=== PATIENT | female | born 1975 | race Two or more races ===

== ENCOUNTER 2017-11-21 12:57 | Emergency (ER) | payer OTHER ==
[~2017-11-21] VITALS: Ht 5.1 cm; Wt 68.0 kg
[~2017-11-21 12:57] MED LIST: ASPI-1 PO; BENZ200C38 PO; BUPXL150 PO; DIP25 PO; HYDR-4309 PO; IBUP-1618 PO; LEVO250T37 PO; LORA-1455 PO; LORA-941 PO; NOR10 PO; ONDA4TAB PO; PER PO; PROM-110 PO; PROM50TA23 PO; PSEU1TAB PO; RIZA10 PO; SUMA50TA34 PO; [UNRECOGNIZED DRUG - OTHER] PO
--- NOTE | 2017-11-21 13:11 | ER Report ---
History and Physical Time Seen By MD: 12:59 HPI/ROS CC: Migraine HPI: 42-year-old female with past medical history of migraines. Patient presents to the emergency department per POV. She has a typical pattern sharp stabbing lasting pain bilateral temples radiating behind the eyes. 9 out of 10 pain. Constant. She is exhibiting nausea vomiting and photophobia with sensitivity to sounds and smells. Movement makes it worse . When the room she has her sweatshirt over her head. There are no other alleviating factors. ROS: 12 point review of systems essentially negative other than what's mentioned in history of present illness. NURSES AND OLD MEDICAL RECORDS: Reviewed PMH: Reviewed SURGICAL HX: Reviewed FAMILY HX: Noncontributory SOCIAL HX: She denies smoking alcohol or illicit drugs. VITAL SIGNS: Reviewed CONSTITUTIONAL: 42 year-old female in moderate to severe distress PHYSICAL EXAM: HEENT: Pupils equal round reactive to light and accommodate, EOMI, tympanic membranes pearly white umbo present with good light reflex. Lips dry mucous membranes moist gums nonbleeding uvula midline and rises equally with phonation, oropharynx noninjected, teeth intact. NECK: Neck supple, thyroid not appreciated, anterior and posterior cervical lymphadenopathy not appreciated. Trachea midline and rises equally with phonation. CARDIAC: S1-S2 regular rate rhythm no murmurs rubs or gallops. LUNGS: Lungs clear bilaterally posteriorly in all barron. Good air movement. ABDOMEN: Abdomen soft, nondistended, bowel sounds active in all 4 quadrants, no bruits noted, no CVA tenderness. MUSCULOSKELETAL: Strength 5 out of 5 x 4 extremities, no deformities noted. NEUROLOGIC: Patient alert and oriented by 3. Cranial 2 through 12 intact. [place] Coma Scale 15. Allergies: Coded Allergies: latex (Verified Allergy, Intermediate, RASH, 10/26/15) Home Meds Discontinued Scripts Nortriptyline Hcl (NORTRIPTYLINE HCL) 10 Mg Cap, 10 MG PO HS, #30 CAP 0 Refills Prov:JANA GALLARDO MD 10/26/15 Lorazepam (ATIVAN) 0.5 Mg Tablet, 0.5 MG PO Q4-6H Y for ANXIETY, #20 TAB 0 Refills Prov:JANA GALLARDO MD 10/26/15 Hx Smoking: No Smoking Status: Never Smoker Exposure to Second Hand Smoke?: No Hx Substance Use Disorder: No Hx Alcohol Use: No Constitutional Vital Sign - Last 24 Hours 11/21/17 11/21/17 11/21/17 11/21/17 13:01 13:01 13:12 13:27 Temp 98.2 Pulse 94 95 ??? Resp 16 B/P (MAP) 150/109 150/109 (123) Pulse Ox 97 94 O2 Delivery Room Air 11/21/17 11/21/17 11/21/17 11/21/17 13:42 13:57 14:12 14:18 Pulse 103 81 87 B/P (MAP) 130/91 (104) Pulse Ox 97 96 11/21/17 11/21/17 14:27 14:42 Pulse 82 80 Pulse Ox 97 Medical Decision Making ED Course/Re-evaluation ED Course Patient received a liter of normal saline with IV medications consisting of Reglan, Benadryl, Zofran, Decadron and patient refusing Toradol. Patient with little relief. Patient was instructed to return to her PCP Dr. Vo, presently out of town. Patient will be given [place] 5/325 10 pills. Patient has been referred to [place] [facility] in [place]. She is to call for an appointment. I discussed with him in length that she needs further evaluation by a neurologist. She has had a CT the past without any significant findings. Patient aware plan and in agreement. Re-evaluation MDM migraine, drug seeking. Decision to Disposition Date: Nov 21, 2017 Decision to Disposition Time: 15:06 Depart Departure Latest Vital Signs Vital Signs Date Time Temp Pulse Resp B/P (MAP) Pulse Ox O2 Delivery O2 Flow Rate FiO2 11/21/17 14:42 80 97 11/21/17 14:18 130/91 (104) 11/21/17 13:01 98.2 16 Room Air Impression: Primary Impression: Migraine Condition: Improved Disposition: HOME OR SELF-CARE New Scripts Hydrocodone Bit/Acetaminophen (NORCO 5-325 TABLET) 1 Each Tablet 1 EACH PO Q6H Y for PAIN, #10 TAB Prov: RADNALL GRIFFITHS MD 11/21/17 Patient Instructions: Migraine Headache (ED) Additional Instructions: [place] [facility] [address] [facility] [phone] Call for appointment. Told in the emergency room at [place] multiple times and you would like a neurology consult with evaluation. Problem Qualifiers Primary Impression: Migraine Migraine type: unspecified Status migrainosus presence: with status migrainosus Intractability: intractable Qualified Codes: G43.911 - Migraine , unspecified, intractable, with status migrainosus RANDALL GRIFFITHS MD Nov 21, 2017 13:11
[2017-11-21] MEDS ORDERED: NS(*) 0.9% 1000 ML BAG 1,000 ML IV ONE (13:14)
[2017-11-21] MEDS ORDERED: METOCLOPRAMIDE 10 MG/2 ML SDV IVP ONE (13:15)
[2017-11-21] MEDS ORDERED: DEXAMETHASONE SOD PHOS 10MG/ML IVP ONE (13:15)
[2017-11-21] MEDS ORDERED: KETOROLAC 30 MG/ML VIAL IVP ONE (13:15)
[2017-11-21] MEDS ORDERED: ONDANSETRON 4 MG/2 ML VIAL IVP ONE (13:15)
[2017-11-21] MEDS ORDERED: diphenhydrAMINE 50 MG/ML VIAL IVP ONE (13:15)
[2017-11-21] MEDS ORDERED: HYDR-4309 PO (15:04)
[2017-11-21 15:11] VITALS: BP 120/82
== END 2017-11-21 15:21 | disposition home or self-care (01) ==
LOC: ER 13:02
DX: G43.911 Migraine, unspecified, intractable, with status migrainosus (principal)
CPT/HCPCS: 96361; 96374; 96375; 99284; J1100; J1200; J2405; J2765; J7030

== ENCOUNTER 2018-06-24 12:13 | Emergency (ER) | payer MEDICAID, OTHER ==
--- NOTE | 2018-06-24 12:31 | ER Report ---
History and Physical Time Seen By MD: 12:30 HPI/ROS CHIEF COMPLAINT: Headache HISTORY OF PRESENT ILLNESS: This is a 42-year-old female presents to the emergency department for a migraine type headache. Patient states that a typical migraine headache began last night patient states that she's been under increased stress with school and this could be douglas to the headache. Patient states this is a typical course with global type headache blurriness to the right eye. This is not the most painful headache she's had. Patient also states that she's been trying to reduce the number of headaches by meditating and uvula she did see a headache specialist and they told her she would be on chronic oral medications for her headaches, the patient states she did not want to do this. Patient arrives tearful. Photophobic. Nausea no vomiting. No chest pain or shortness of breath no other complaints. REVIEW OF SYSTEMS: Constitutional: No fever, no chills. Eyes: No discharge. ENT: No sore throat. Cardiovascular: No chest pain, no palpitations. Respiratory: No cough, no shortness of breath. Gastrointestinal: As above. Genitourinary: No hematuria. Musculoskeletal: No back pain. Skin: No rashes. Neurological: As above. Allergies: Coded Allergies: latex (Verified Allergy, Intermediate, RASH, 10/26/15) Home Meds Active Scripts Hydrocodone Bit/Acetaminophen (NORCO 5-325 TABLET) 1 Each Tablet, 1 EACH PO Q6H Y for PAIN, #10 TAB Prov:RANDALL GRIFFITHS MD 11/21/17 Past Medical/Surgical History The patient has a past medical and surgical history of migraines. Reviewed Nurses Notes: Yes Hx Smoking: No Smoking Status: Never Smoker Exposure to Second Hand Smoke?: No Hx Substance Use Disorder: No Hx Alcohol Use: No Constitutional Vital Sign - Last 24 Hours 06/24/18 06/24/18 06/24/18 06/24/18 12:32 12:32 12:45 13:00 Temp 97.6 Pulse 110 98 92 Resp 18 36 24 B/P (MAP) 163/95 163/95 (117) Pulse Ox 97 97 96 O2 Delivery Room Air 06/24/18 06/24/18 06/24/18 06/24/18 13:15 13:30 13:45 13:50 Pulse 93 97 96 99 Resp 34 18 16 12 Pulse Ox 94 93 97 96 06/24/18 06/24/18 06/24/18 06/24/18 13:55 14:00 14:05 14:10 Pulse 99 97 100 99 Resp 31 20 19 24 Pulse Ox 96 96 96 95 06/24/18 06/24/18 06/24/18 06/24/18 14:15 14:20 14:25 14:27 Pulse 101 98 87 Resp 21 11 15 Pulse Ox 96 99 100 O2 Flow Rate 2.0 06/24/18 06/24/18 06/24/18 06/24/18 14:30 14:35 14:40 14:45 Pulse 84 86 84 85 Resp 23 8 Pulse Ox 100 100 100 99 06/24/18 06/24/18 06/24/18 06/24/18 14:50 14:55 15:00 15:05 Pulse 86 89 88 89 Resp 20 19 15 Pulse Ox 99 99 99 100 06/24/18 06/24/18 06/24/18 06/24/18 15:10 15:15 15:20 15:25 Pulse 85 80 85 88 Resp 26 Pulse Ox 99 98 98 98 06/24/18 15:26 B/P (MAP) 143/84 (103) Intake and Output 06/24/18 06/24/18 06/25/18 15:00 23:00 07:00 Intake Total 1000 ml Balance 1000 ml Physical Exam General Appearance: The patient is alert, has no immediate need for airway protection and no signs of toxicity. Eyes: Pupils equal and round no pallor or injection. EOMs intact. Photophobic on exam. ENT, Mouth: Mucous membranes are moist. Respiratory: There are no retractions, lungs are clear to auscultation. Cardiovascular: Regular rate and rhythm. Gastrointestinal: Abdomen is soft and non tender, no masses, bowel sounds normal. Neurological: Alert and oriented 4. Moving all extremities. Following all commands. No focal neuro deficits. Skin: Warm and dry, no rashes. Musculoskeletal: Neck is supple non tender. Extremities are nontender, nonswollen and have full range of motion. DIFFERENTIAL DIAGNOSIS: After history and physical exam differential diagnosis was considered for headache including but not limited to subarachnoid hemorrhage , migraine headache, tension headache and infectious causes such as meningitis, pharyngitis and sinusitis. Medical Decision Making ED Course/Re-evaluation Clinical Indication for ER IV: Hydration, IV Access ED Course The patient was mandatory. History physical were obtained. Differential diagnoses were considered. An IV was inserted. A 1 L normal saline bolus was given. As this is a typical migraine presentation the patient no additional imaging was required, no subsequent blood work was done. Patient was given 4 mg IV Zofran 2 for 0.5 mg IV Phenergan 225 mg IV Benadryl 2, 5 mg IV Decadron, 30 mg IV Toradol. She did continue to have some discomfort, supplement oxygen was given which did seem to help. The patient did become somewhat agitated that I was giving her narcotic pain medications, didn't explain to her that narcotics are not indicated for migraine headaches. The patient did also a apologize for being so confrontational. The patient was instructed to go home and sleep, this evening she can take ibuprofen or Tylenol as needed. Try caffeine. I did instruct the patient to follow-up with a headache specialist again in [place]. She can also follow-up with her primary care provider within the next 2-4 days. The patient had not impressions concerns at this time was discharged home. 06/24/2018 2:22:36 pm back in to evaluate the patient, she states the pain seems to have intensified after the last dose of medications. Will try oxygen. 06/24/2018 3:19:04 pm the patient states the oxygen is helping a little bit however she is requesting something "more for pain". I did explain to her that narcotics are not indicated for migraine headaches will cause increased rebound. Patient is somewhat agitated. Decision to Disposition Date: Jun 24, 2018 Decision to Disposition Time: 15:18 Depart Departure Latest Vital Signs Vital Signs Date Time Temp Pulse Resp B/P (MAP) Pulse Ox O2 Delivery O2 Flow Rate FiO2 06/24/18 15:26 143/84 (103) 06/24/18 15:25 88 26 98 06/24/18 14:27 2.0 06/24/18 12:32 97.6 Room Air Impression: Primary Impression: Migraine Condition: Improved Disposition: HOME OR SELF-CARE Patient Instructions: Migraine Headache (ED) Additional Instructions: Be sure to go home and try to get as much sleep as possible. My recommendation is to follow up with the eye doctor for glasses that help with glare. Follow up with your primary care provider within 2-4 days for reevaluation, Drink plenty of water and caffeine which sometimes helps with headaches. Follow up with headache specialist. Return to the ED for any other concerns or worsening symptoms. Problem Qualifiers Primary Impression: Migraine Migraine type: without aura Status migrainosus presence: without status migrainosus Intractability: not intractable Qualified Codes: G43.009 - Migraine without aura, not intractable, without status migrainosus AVERY [id number]-BC Jun 24, 2018 12:31
[2018-06-24] MEDS ORDERED: NS(*) 0.9% 1000 ML BAG 1,000 ML IV ONE (12:34)
[2018-06-24] MEDS ORDERED: DEXAMETHASONE SOD PHOS 10MG/ML IVP ONE (12:35)
[2018-06-24] MEDS ORDERED: PROMETHAZINE 25 MG/ML 1 ML AMP IVP ONE ×2 (12:35→13:40)
[2018-06-24] MEDS ORDERED: ONDANSETRON 4 MG/2 ML VIAL IVP ONE ×2 (12:35→13:40)
[2018-06-24] MEDS ORDERED: KETOROLAC 30 MG/ML VIAL IVP ONE (12:35)
[2018-06-24] MEDS ORDERED: diphenhydrAMINE 50 MG/ML VIAL IVP ONE ×2 (12:35→15:10)
[2018-06-24 15:26] VITALS: BP 143/84
== END 2018-06-24 15:36 | disposition home or self-care (01) ==
LOC: ER 12:37
DX: G43.009 Migraine without aura, not intractable, without status migrainosus (principal)
CPT/HCPCS: 96374; 96375; 96376; 99284; J1100; J1200; J1885; J2405; J2550; J7030